=== PATIENT | male | born 1950 | race Caucasian/White ===

== ENCOUNTER 2023-02-08 15:57 | Observation (INO) ==
--- NOTE | 2023-02-08 16:15 | Emergency Department Note ---
Impression & Plan Hypotension, CAD (coronary artery disease), Hypertension, Medication side effect ED Provider Note NAME: ED HAWKINS AGE: 72 SEX: M : 1950 ARRIVES VIA: Ambulance INFORMANT: Patient, ED PROVIDER(S): Dao Candelaria MD CHIEF COMPLAINT: Presyncope MEDICAL DECISION MAKING: Patient presents due to concern for presyncopal symptoms. The patient was hypotensive upon presentation was ordered IV fluids. The patient is mentating normally and does not appear to be an extremis. IV was established blood work was obtained. The patient's blood counts today show normal white count hemoglobin 12.8 which there is no prior for comparison. Kidney function grossly unremarkable but with prerenal azotemia. Patient's troponin is not elevated. Given the patient's hypotension likely secondary to the increase in his blood pr essure medicine as well as a second episode of almost passing out to the patient would benefit from admission. It is with the on-call hospital service Dr. Miller and the patient was admitted to the medicine service Prior /Outside records reviewed: None Differential diagnosis: Vasovagal event, dehydration, infection, hypoglycemia, electrolyte abnormalities, cardiac sources, intracerebral event, pulmonary embolism, seizure, toxicologic, neurologic, as well as other pathologies. Diagnostics, as interpreted by me: ECG:Sinus rhythm, rate of 66 possible wide QRS motion artifact noted likely secondary to patient's DBS. No obvious ST elevations. Cardiac monitoring: An order was placed for continuous cardiac monitoring. The monitor shows a rate of 55 with sinus bradycardia rhythm. Patient was placed on pulse oximetry Medical decision rules: none Imaging studies: See below HPI: Patient presents due to concern for presyncopal symptoms. The patient states that he had presented to an outpatient follow-up visit developed presyncopal symptoms and was noted to be hypotensive and was referred here for further evaluation treatment. Patient states that all of this began about 2 weeks ago when he had a syncopal episode. Patient denies any recent trauma but did have a syncopal event 2 weeks prior. The patient Liat Bowen had mild elevations in his troponins and the bight maker at the time wanted a cardiac catheterization. States that they did not have a cardiac catheterization that went home he followed up with his primary bight maker Dr. Delgadillo who stated that if he had a repeat episode that he should be further evaluated. The patient does believe that he had a prior echocardiogram. Patient denies any current chest pains or shortness of breath no nausea vomiting. Patient states that his appetite has been appropriate. No diarrhea. PAST MEDICAL HISTORY: See Below PAST SURGICAL HISTORY: See Below SOCIAL HISTORY: See Below HOME MEDICATIONS: See Below ALLERGIES: See Below VITALS: See Below PHYSICAL EXAMINATION: GENERAL: NAD, wearing a mask, non-toxic. EYE EXAM: Normal conjunctiva. PERRL, no anisocoria and EOM's grossly intact w/o pain. NECK: Supple, no nuchal rigidity, no adenopathy, non-tender. No signs of meningismus. FROM of the neck with good chin to chest and neck extension. No stridor. LUNGS: Clear to auscultation. Normal chest wall mechanics. HEART: NSR, no MRG. ABDOMEN: Abdomen soft, non-tender, no masses, no rebound or guarding. BACK: No CVA TTP. SKIN: No rashes and no bruising. UPPER EXTREMITIES: Upper extremities are grossly normal. LOWER EXTREMITIES: Grossly normal, no edema. NEURO EXAM: A&O x3, cranial nerves II-XII grossly intact, normal speech, moves all 4 extremities. Past Med/Surg History Medical History AAA (abdominal aortic aneurysm) 4.6 x 3.9 cm 02/08/23 Anxiety CAD (coronary artery disease) Hypertension Hypotension Hypothyroidism Macrocytic anemia Tobacco use Surgical History No pertinent past surgical history Social History Smoking Status: Current every day smoker Tobacco Type: Cigarettes Cigarettes Per Day: 2; Do You Dip or Chew Tobacco: No; Tobacco Cessation Education Requested by Patient: No Hx Alcohol Use: No Hx Substance Use: No Preferred Language: Trinidadian Communication Ability: Effective Adult Manager Required: No Beliefs That Will Affect Care: None Current Living Situation: Spouse Other Information That Helps Us Care for You: No Feels Safe at Home: Yes Safety Concerns: Feels Safe At This Time Assistive Devices: Glasses Allergies Allergies Allergy/AdvReac Type Severity Reaction Status Date / Time No Known Allergies Allergy Verified 02/08/23 18:02 Home Meds Home Medications Medication Instructions Recorded Confirmed aspirin 81 mg tablet,delayed 81 mg PO DAILY 02/08/23 02/08/23 release bupropion HCl 100 mg tablet,12 hr 100 mg PO DAILY 02/08/23 02/08/23 sustained-release cilostazol 50 mg tablet 50 mg PO BID 02/08/23 02/08/23 hydralazine 10 mg tablet 10 mg PO DAILY PRN SBP >150 02/08/23 02/08/23 hydrochlorothiazide 12.5 mg tablet 12.5 mg PO DAILY 02/08/23 02/08/23 levothyroxine 50 mcg tablet 50 mcg PO DAILYBB 02/08/23 02/08/23 lisinopril 20 mg tablet 20 mg PO BID 02/08/23 02/08/23 multivitamin 1 tab PO DAILY 02/08/23 02/08/23 omega-3 fatty acids 1,000 mg 1,000 mg PO DAILY 02/08/23 02/08/23 capsule rosuvastatin 20 mg tablet 20 mg PO DAILY 02/08/23 02/08/23 sulfasalazine 500 mg tablet 1,500 mg PO DAILY 02/08/23 02/08/23 varenicline 0.5 mg tablet 0.5 mg PO DIRECTED 02/08/23 02/08/23 Previous Rx's Medication Instructions Recorded lisinopril 10 mg tablet 10 mg PO BID 30 days #60 tabs 02/09/23 Results & Data (ED) Vital Signs Vital Signs - 24 hr 02/08/23 16:18 02/08/23 16:16 02/08/23 16:30 Temperature 36.7 C Temperature Source Oral Pulse Rate 65 66 Pulse Rate from SpO2 Sensor Respiratory Rate 14 Blood Pressure 93/49 L 107/64 Blood Pressure Mean 63 78 Pulse Oximetry 96 Oxygen Delivery Method Room Air Sepsis Recent Fever Within 48 Hours No Sepsis New/Unexplained Change in Mental Status No Sepsis Action Taken by Nursing No Action Required 02/08/23 16:30 02/08/23 16:22 02/08/23 17:00 Temperature Temperature Source Pulse Rate 58 L 58 L Pulse Rate from SpO2 Sensor 59 L 58 L Respiratory Rate 13 20 Blood Pressure Blood Pressure Mean Pulse Oximetry 96 97 Oxygen Delivery Method Room Air Room Air Room Air Sepsis Recent Fever Within 48 Hours Sepsis New/Unexplained Change in Mental Status Sepsis Action Taken by Nursing 02/08/23 17:01 02/08/23 17:01 02/08/23 17:30 Temperature Temperature Source Pulse Rate 60 Pulse Rate from SpO2 Sensor 59 L Respiratory Rate 17 Blood Pressure 84/42 L 81/48 L Blood Pressure Mean 56 59 Pulse Oximetry 94 Oxygen Delivery Method Room Air Sepsis Recent Fever Within 48 Hours Sepsis New/Unexplained Change in Mental Status Sepsis Action Taken by Nursing 02/08/23 17:30 02/08/23 18:00 02/08/23 18:00 Temperature Temperature Source Pulse Rate 50 L 60 Pulse Rate from SpO2 Sensor 46 L 58 L Respiratory Rate 16 14 Blood Pressure 85/45 L Blood Pressure Mean 58 Pulse Oximetry 96 98 Oxygen Delivery Method Room Air Room Air Sepsis Recent Fever Within 48 Hours Sepsis New/Unexplained Change in Mental Status Sepsis Action Taken by Nursing 02/08/23 18:30 02/08/23 18:46 02/08/23 18:46 Temperature Temperature Source Pulse Rate 51 L 62 Pulse Rate from SpO2 Sensor 53 L 61 Respiratory Rate 21 13 Blood Pressure 113/61 Blood Pressure Mean 78 Pulse Oximetry 99 96 Oxygen Delivery Method Room Air Room Air Sepsis Recent Fever Within 48 Hours Sepsis New/Unexplained Change in Mental Status Sepsis Action Taken by [facility] Medications Current Medication List: was personally reviewed by me Laboratory Data Attestation: I reviewed the patient's lab results. 02/08/23 16:24 02/08/23 16:24 Lab Results 02/08/23 02/08/23 02/08/23 Range/Units 16:24 16:24 16:24 WBC 8.20 (4.8-10.8) K/ul RBC 3.71 L (4.70-6.10) M/uL Hgb 12.8 L (14.0-18.0) g/dl Hct 37.6 L (42.0-52.0) % MCV 101.3 H (80.0-100.0) fL MCH 34.5 H (25.0-34.0) pg MCHC 34.0 (32.0-36.0) g/dL RDW Std Deviation 46.1 (36.4-46.3) fL RDW Coeff of Jac 12.2 (11.5-14.5) % Plt Count 209 (130-400) K/uL MPV 10.2 (9.4-12.4) fL Immature Gran % (Auto) 0.6 % Neut % (Auto) 44.4 % Lymph % (Auto) 41.7 % [place] % (Auto) 10.0 % Eos % (Auto) 2.7 % Baso % (Auto) 0.6 % Neut # (Auto) 3.64 (1.40-6.50) K/uL Lymph # (Auto) 3.42 H (1.2-3.4) K/uL [place] # (Auto) 0.82 H (0.11-0.59) K/uL Eos # (Auto) 0.22 (0-0.50) K/uL Baso # (Auto) 0.05 (0-0.2) K/uL Immature Gran # (Auto) 0.05 (0.01-0.20) K/uL PT 11.4 (9.0-12.0) Seconds INR 1.0 (0.9-1.1) Sodium 141 (136-145) mmol/L Potassium 4.2 (3.5-5.1) mmol/L Chloride 109 H (98-107) mmol/L Carbon Dioxide 26 (21-32) mmol/L Anion Gap 6 (3-11) BUN 24 H (6-23) mg/dl Creatinine 1.00 (0.6-1.4) mg/dl Est Cr Clr Drug Dosing 75.4 ml/min Est GFR ( Amer) 88.0 ml/min Est GFR (Non-Af Amer) 75.9 ml/min BUN/Creatinine Ratio 24.0 H (10-20) Glucose 86 (70-99(Fasting)) mg/dl Calcium 9.5 (8.6-10.3) mg/dl Magnesium 2.1 (1.7-2.4) mg/dl Total Bilirubin 0.5 (0.2-1.0) mg/dl AST 14 (13-39) U/L ALT 16 (7-52) U/L Alkaline Phosphatase 73 (34-104) U/L Troponin I High Sens 7.8 (0-20) pg/ml Total Protein 6.5 (6.0-8.3) gm/dl Albumin 3.7 (3.4-5.0) gm/dl Globulin 2.8 (2.5-4.0) gm/dl Albumin/Globulin Ratio 1.3 (0.9-2) TSH (0.300-4.500) uIu/ml SARS-CoV-2, RNA, NAAT (NEGATIVE) 02/08/23 02/08/23 Range/Units 16:24 18:44 WBC (4.8-10.8) K/ul RBC (4.70-6.10) M/uL Hgb (14.0-18.0) g/dl Hct (42.0-52.0) % MCV (80.0-100.0) fL MCH (25.0-34.0) pg MCHC (32.0-36.0) g/dL RDW Std Deviation (36.4-46.3) fL RDW Coeff of Jac (11.5-14.5) % Plt Count (130-400) K/uL MPV (9.4-12.4) fL Immature Gran % (Auto) % Neut % (Auto) % Lymph % (Auto) % [place] % (Auto) % Eos % (Auto) % Baso % (Auto) % Neut # (Auto) (1.40-6.50) K/uL Lymph # (Auto) (1.2-3.4) K/uL [place] # (Auto) (0.11-0.59) K/uL Eos # (Auto) (0-0.50) K/uL Baso # (Auto) (0-0.2) K/uL Immature Gran # (Auto) (0.01-0.20) K/uL PT (9.0-12.0) Seconds INR (0.9-1.1) Sodium (136-145) mmol/L Potassium (3.5-5.1) mmol/L Chloride (98-107) mmol/L Carbon Dioxide (21-32) mmol/L Anion Gap (3-11) BUN (6-23) mg/dl Creatinine (0.6-1.4) mg/dl Est Cr Clr Drug Dosing ml/min Est GFR ( Amer) ml/min Est GFR (Non-Af Amer) ml/min BUN/Creatinine Ratio (10-20) Glucose (70-99(Fasting)) mg/dl Calcium (8.6-10.3) mg/dl Magnesium (1.7-2.4) mg/dl Total Bilirubin (0.2-1.0) mg/dl AST (13-39) U/L ALT (7-52) U/L Alkaline Phosphatase (34-104) U/L Troponin I High Sens (0-20) pg/ml Total Protein (6.0-8.3) gm/dl Albumin (3.4-5.0) gm/dl Globulin (2.5-4.0) gm/dl Albumin/Globulin Ratio (0.9-2) TSH 3.248 (0.300-4.500) uIu/ml SARS-CoV-2, RNA, NAAT NEGATIVE (NEGATIVE) Administered Medications Aspirin (Aspirin 81 Mg Ectab) 81 mg PO DAILY SHAJI Stop: 03/11/23 08:59 Last Admin: 02/09/23 08:47 Dose: 81 mg Documented By: MAYKEL Bupropion HCl (Bupropion Sr 100 Mg Tabcr) 100 mg PO DAILY SHAJI Stop: 03/11/23 08:59 Last Admin: 02/09/23 08:47 Dose: 100 mg Documented By: MAYKEL Cilostazol (Cilostazol 100 Mg Tab) 50 mg PO BID SHAJI Stop: 03/10/23 21:29 Last Admin: 02/09/23 08:48 Dose: 50 mg Documented By: Admin: 02/08/23 21:48 Dose: 50 mg Documented By: KLARISSA Enoxaparin Sodium (Enoxaparin Inj 40 Mg/0.4 Ml Syr) 40 mg SQ Q24H SHAJI Stop: 03/11/23 08:59 Last Admin: 02/09/23 08:51 Dose: 40 mg Documented By: MAYKEL Levothyroxine Sodium (Levothyroxine Sodium 50 Mcg Tablet) 50 mcg PO DAILYBB SHAJI Stop: 03/11/23 06:29 Last Admin: 02/09/23 05:55 Dose: 50 mcg Documented By: KLARISSA Lisinopril (Lisinopril 10 Mg Tab) 10 mg PO BID SHAJI Stop: 03/10/23 20:59 Last Admin: 02/09/23 08:50 Dose: 10 mg Documented By: Admin: 02/08/23 21:49 Dose: 10 mg Documented By: KLARISSA Rosuvastatin Calcium (Rosuvastatin Calcium 20 Mg Tab) 20 mg PO DAILY SHAJI Stop: 03/11/23 08:59 Last Admin: 02/09/23 08:47 Dose: 20 mg Documented By: MAYKEL Sulfasalazine (Sulfasalazine 500 Mg Tablet) 1,500 mg PO DAILY [facility] Stop: 03/11/23 08:59 Last Admin: 02/09/23 08:49 Dose: 1,500 mg Documented By: MAYKEL Discontinued Medications Sodium Chloride (Nss) 500 mls @ 999 mls/hr IV .Q31M SHAJI Stop: 02/08/23 17:45 Last Infusion: 02/08/23 17:39 Dose: 0 mls/hr Documented By: Admin: 02/08/23 17:08 Dose: 999 mls/hr Documented By: YOVANA Sodium Chloride (Nss 1000ml) 1,000 mls @ 999 mls/hr IV .Q1H1M ONE Stop: 02/08/23 19:08 Last Infusion: 02/08/23 19:18 Dose: 0 mls/hr Documented By: Admin: 02/08/23 18:17 Dose: 999 mls/hr Documented By: YOVANA Discharge Plan Visit Data Chief Complaint: Cardiac Assessment Stated Complaint: DIZZINESS, HYPOTENSION ED Provider: Dao Candelaria Discharge Problem: Hypotension, CAD (coronary artery disease), Hypertension, Medication side effect Patient Disposition: Admitted As Inpatient Discharge Instructions Interventions: ED Discharge Assessment Last Done: 02/08/23 20:23
[2023-02-08] MEDS ORDERED: SODIUM CHLORIDE 0.9% 500 ML IV SCH (17:15)
[2023-02-08 17:16] LABS: Basophils # (auto) 0.05 K/uL (0-0.2); Basophils % (auto) 0.6 %; Eosinophils # (auto) 0.22 K/uL (0-0.50); Eosinophils % (auto) 2.7 %; Hematocrit (blood only) 37.6 % (42.0-52.0); Hemoglobin 12.8 g/dl (14.0-18.0); Immature Granulocytes # (auto) 0.05 K/uL (0.01-0.20); Immature Granulocytes % (auto) 0.6 %; Lymphocytes # (auto) 3.42 K/uL (1.2-3.4); Lymphocytes % (auto) 41.7 %; Mean Corpuscular Hemoglobin 34.5 pg (25.0-34.0); Mean Corpuscular Volume 101.3 fL (80.0-100.0); Mean Platelet Volume 10.2 fL (9.4-12.4); Monocytes # (auto) 0.82 K/uL (0.11-0.59); Neutrophils # (auto) 3.64 K/uL (1.40-6.50); Neutrophils % (auto) 44.4 %; Platelet Count 209 K/uL (130-400); RDW Coefficient of Variation 12.2 % (11.5-14.5); RDW Standard Deviation 46.1 fL (36.4-46.3); Red Blood Count 3.71 M/uL (4.70-6.10)
[2023-02-08 17:29] LABS: Albumin Globulin Ratio 1.3 (0.9-2); Albumin Level 3.7 gm/dl (3.4-5.0); Bilirubin,Total 0.5 mg/dl (0.2-1.0); Calcium 9.5 mg/dl (8.6-10.3); Creatinine Clr Calc Pharmacy 75.4 ml/min; Est GFR (Non-African American) 75.9 ml/min; Globulin 2.8 gm/dl (2.5-4.0); Magnesium 2.1 mg/dl (1.7-2.4); Potassium 4.2 mmol/L (3.5-5.1); Total Protein 6.5 gm/dl (6.0-8.3)
[2023-02-08 17:35] LABS: Troponin I High Sensitivity 7.8 pg/ml (0-20)
[2023-02-08 17:38] LABS: Prothrombin Time 11.4 Seconds (9.0-12.0)
[2023-02-08] MEDS ORDERED: SODIUM CHLORIDE 0.9% 1000ML 1,000 ML IV ONE (18:08)
--- NOTE | 2023-02-08 18:35 | History & Physical Report ---
Date of Service February 08, 2023 Assessment & Plan (1) Hypotension: Plan: Hypotension - Normalized after IVF EKG without ischemic findings High-sensitivity troponin is normal on admission Improved with fluids, patient is normotensive at time of hospitalist assessm ent Patient has had multiple antihypertensive medication adjustments, only took lisinopril in the morning for his blood pressure drops Does endorse orthostatic symptoms in the last 2 weeks, no syncope since he was seen in [facility] 2 weeks ago Records pending. Per patient has a history of OK with 1 stent, no reduced ejection fraction. Does take aspirin. He has not had any chest pain, chest pressure, or shortness of breath in the last 2 weeks Lisinopril dose decreased, hydrochlorothiazide held Troponin 2-hour trended Patient was seen at [facility] with a high sensor troponin that peaked at 101, deferred cath at that time and has a follow-up with Dr. Delgadillo. No acute indication for cath at time of bedside assessment as he is not having chest pain, EKG is normal, and high-sensitivity troponins normal. We will continue to follow overnight Renal function is normal, BUN/creatinine ratio is elevated suggesting volume depletion No leukocytosis, no infectious symptoms, no fever. COVID is pending Hemoglobin is 12.8, no baseline available. Patient denies bleeding. Abdominal aortic aneurysm Records pending, has annual surveillance. Last had this ultrasounded 2 weeks ago at [facility], was not expanding and did not have an indication for surgery at that time. - Reocrds not available, Abd US pending Anxiety/depression Wellbutrin continued CAD, history of PCI x1 No chest pain, chest pressure, acute EKG changes, or troponin elevation Continue aspirin, rosuvastatin, lisinopril (lisinopril dose reduced) Patient is not on a beta-miracle, previously on propranolol but this was stopped for borderline bradycardia Bradycardia Patient is bradycardic in the 50s with chronotropic response to the 60s when moving around in bed. We will follow on telemetry. No indication for pacing at this time. Hypothyroidism Continue Synthroid Diet: HH Dispo: Med Tele CODE: Full (2) CAD (coronary artery disease): (3) Anxiety: History of Present Illness Primary Care Provider: MD Randy Reese is a 72-year-old male with a past medical history of hypertension, hypothyroidism, AAA who had recent medication up titration as outpatient who presented with hypotension. Randy reports that 2 weeks ago he had an episode of syncope. While in the [place] was noted to have very high blood pressure (200/100 in the hospital). Was a little dizzy this morning, was found to be hypotensive in the ER. Previously was on 5mg of lisinopril. Was increased to 20mg BID (40mg TDD) in October. Had clonidine added a few weeks ago, then say Dr. Delgadillo on [facility] and had that stopped, was switched with hydralazine PRN for BP >150. Has not taken this in the last 3 days. Had hctz added a few weeks ago, last took yesterday. Only took lisinopril this morning. Dizziness is worse when standing. Does have muscle cramps occasionally. Has a history of OK with 1 stent, AAA followed with regular exams, may need surgery in 1.5-2 years. Is not sure what size it currently is, ultrasound is in March. Had on US at [facility] 2 weeks ago, no rapid increase or indication for surgery at that time. No shortness of breath Endorses a slow heart rate normally, does not take BB/CCB. Was on propanolol until 2 weeks ago, stopped at [facility] for concerns of low HR. hs-trop in [facility] peaked at 101, cath was deffered. Pt denies chest pain, chest pressure. Hx PAD, L leg > R leg. No ulcers. On admission he has no leukocytosis, hemoglobin is 12.8, renal function is with normal baseline and admitting creatinine is 1.00, sodium/potassium are normal, he has no transaminitis, high-sensitivity troponin is normal, TSH is normal Medications include aspirin Bupropion Telemetry stays all Hydralazine 10 mg daily as needed Hydrochlorothiazide 12.5 mg p.o. daily Synthroid 50 mcg daily Lisinopril 20 mg twice daily Rosuvastatin Chantix Sulfasalazine Multivitamin Medical History: Reviewed Medications: Reviewed Surgical History: Reviewed Family history: Reviewed Allergies: Reviewed Social History: No ETOH, +cigarette use Code Status: Full Code Allergies Allergy/AdvReac Type Severity Reaction Status Date / Time No Known Allergies Allergy Verified 02/08/23 18:02 Home Medications Medication Instructions Recorded Confirmed Type aspirin 81 mg tablet,delayed 81 mg PO DAILY 02/08/23 02/08/23 History release bupropion HCl 100 mg tablet,12 hr 100 mg PO DAILY 02/08/23 02/08/23 History sustained-release cilostazol 50 mg tablet 50 mg PO BID 02/08/23 02/08/23 History hydralazine 10 mg tablet 10 mg PO DAILY PRN SBP >150 02/08/23 02/08/23 History hydrochlorothiazide 12.5 mg tablet 12.5 mg PO DAILY 02/08/23 02/08/23 History levothyroxine 50 mcg tablet 50 mcg PO DAILYBB 02/08/23 02/08/23 History lisinopril 20 mg tablet 20 mg PO BID 02/08/23 02/08/23 History multivitamin 1 tab PO DAILY 02/08/23 02/08/23 History omega-3 fatty acids 1,000 mg 1,000 mg PO DAILY 02/08/23 02/08/23 History capsule rosuvastatin 20 mg tablet 20 mg PO DAILY 02/08/23 02/08/23 History sulfasalazine 500 mg tablet 1,500 mg PO DAILY 02/08/23 02/08/23 History varenicline 0.5 mg tablet 0.5 mg PO DIRECTED 02/08/23 02/08/23 History Past Med/Surg History Medical History AAA (abdominal aortic aneurysm) Anxiety CAD (coronary artery disease) Hypotension Surgical History No pertinent past surgical history Social History Smoking Status: Current every day smoker Tobacco Type: Cigarettes Hx Alcohol Use: No Hx Substance Use: No Preferred Language: Turkmen Feels Safe at Home: Yes Review of Systems Review of Systems: All systems reviewed & are unremarkable except as noted in HPI & below Physical Exam Physical Exam: General: A&Ox3. NAD. Cooperative. HEENT: Atraumatic, normocephalic. Vision/hearing intact Pulm: CTAB A&P. -wheezes, -rales, -rhonchi. Symmetrical chest rise. No increased work of breathing. No respiratory distress. Cardiac: regular, bardycardic with chronotropic response. -mrg. Radial pulses intact and symmetrical. Abdominal: Nontender, nondistended, soft. BS present. No pulsation appreciated. Ext: warm, dry. No edema. Results & Data Results & Data Vital Signs (Past 12 Hours) Vital Signs Temp Pulse Resp BP Pulse Ox O2 Del Method 02/08/23 17:30 50 L 16 96 Room Air 02/08/23 17:30 81/48 L 02/08/23 17:01 84/42 L 02/08/23 17:01 60 17 94 Room Air 02/08/23 17:00 58 L 20 97 Room Air 02/08/23 16:22 Room Air 02/08/23 16:30 58 L 13 96 Room Air 02/08/23 16:30 107/64 02/08/23 16:16 66 02/08/23 16:18 36.7 C 65 14 93/49 L 96 Room Air PG Care Time/CCT Total # of Minutes Spent Total Time Spent with Patient: Total time spent is greater than 50% in coordination of care (as documented) at patient's floor/unit and/or counseling patient: Coding Level of Care Code 62215 INT INP/OBS CARE 2/55MIN Diagnoses Hypotension I95.9 CAD (coronary artery disease) I25.10 Anxiety F41.9
--- NOTE | 2023-02-08 20:25 | Ultrasound Report ---
US abdominal aortic aneurysm CLINICAL HISTORY: AAA hx COMPARISON STUDY: None available at time of interpretation. TECHNIQUE: Sonography of the abdominal aorta was performed. FINDINGS: There is mild aneurysmal dilatation of the proximal abdominal aorta, measuring 3.3 x 2.6 cm . Mid abdominal aorta is ectatic, measuring 2.8 x 2.8 cm. There is a 4.6 x 3.9 cm infrarenal abdomina l aortic aneurysm. This contains mural plaque. Right common iliac artery measures 1.7 cm in caliber. The left common iliac artery measures 1.5 cm in caliber. IMPRESSION: 4.6 x 3.9 cm infrarenal abdominal aortic aneurysm. ACT 112: Negative or not required by law. Electronically signed by: Hector Chun M.D. 02/08/2023 8:23 PM
[2023-02-08] MEDS: cilostazoL 100 MG TAB PO SCH (21:48)
[2023-02-08] MEDS: lisinopril 10 MG TAB PO SCH (21:49)
[2023-02-09] MEDS ORDERED: LEVOTHYROXINE SODIUM 50 MCG TABLET PO SCH (06:30)
--- NOTE | 2023-02-09 07:19 | Hospitalist Progress Note ---
Date of Service February 09, 2023 Assessment & Plan Admission and Anticipated Discharge Date Admission Date: February 08, 2023 Results & Data Results & Data Vital Signs (Past 12 Hours) Vital Signs Temp Pulse Pulse Resp BP Pulse Ox O2 Del Method 02/09/23 02:38 36.4 C L 58 L 18 138/71 96 Room Air 02/08/23 23:26 72 02/08/23 22:26 54 L 02/08/23 21:10 36.4 C L 53 L 18 144/73 H 97 Room Air
[2023-02-09 08:06] LABS: Hematocrit (blood only) 33.7 % (42.0-52.0); Hemoglobin 11.5 g/dl (14.0-18.0); Mean Corpuscular Hemoglobin 34.8 pg (25.0-34.0); Mean Corpuscular Hgb Conc 34.1 g/dL (32.0-36.0); Mean Corpuscular Volume 102.1 fL (80.0-100.0); Mean Platelet Volume 10.2 fL (9.4-12.4); Platelet Count 173 K/uL (130-400); RDW Coefficient of Variation 12.3 % (11.5-14.5); RDW Standard Deviation 46.5 fL (36.4-46.3); White Blood Count 8.67 K/ul (4.8-10.8)
[2023-02-09 08:07] LABS: Appearance Urine Clear (Clear); Bilirubin Urine Negative (Negative); Blood Urine Negative (Negative); Color Urine Yellow; Glucose Urine UA Negative (Negative); Ketones Urine Negative (Negative); Leukocyte Esterase Urine Negative (Negative); Nitrite Urine Negative (Negative); Protein Urine Negative (Negative); Specific Gravity Urine 1.018 (1.000-1.030); Urobilinogen Urine Negative (Negative)
[2023-02-09 08:20] LABS: BUN Creatinine Ratio 23.5 (10-20); Calcium 8.5 mg/dl (8.6-10.3); Creatinine Clr Calc Pharmacy 88.8 ml/min; Est GFR (African American) 102.3 ml/min; Est GFR (Non-African American) 88.3 ml/min; Potassium 4.3 mmol/L (3.5-5.1)
[2023-02-09] MEDS: cilostazoL 100 MG TAB PO SCH (08:48)
[2023-02-09 08:50] LABS: Basophils # (auto) 0.05 K/uL (0-0.2); Basophils % (auto) 0.6 %; Eosinophils % (auto) 3.5 %; Immature Granulocytes # (auto) 0.03 K/uL (0.01-0.20); Immature Granulocytes % (auto) 0.3 %; Lymphocytes # (auto) 4.45 K/uL (1.2-3.4); Lymphocytes % (auto) 51.3 %; Monocytes # (auto) 0.73 K/uL (0.11-0.59); Monocytes % (auto) 8.4 %; Neutrophils # (auto) 3.11 K/uL (1.40-6.50); Neutrophils % (auto) 35.9 %
[2023-02-09] MEDS: lisinopril 10 MG TAB PO SCH (08:50)
[2023-02-09] MEDS ORDERED: ASPIRIN 81 MG ECTAB PO SCH (09:00)
[2023-02-09] MEDS ORDERED: ENOXAPARIN INJ 40 MG/0.4 ML SYR SQ SCH (09:00)
[2023-02-09] MEDS ORDERED: buPROPion SR 100 MG TABCR PO SCH (09:00)
[2023-02-09] MEDS ORDERED: sulfaSALAzine 500 MG TABLET PO SCH (09:00)
[2023-02-09] MEDS ORDERED: ROSUVASTATIN CALCIUM 20 MG TAB PO SCH (09:00)
--- NOTE | 2023-02-09 14:07 | Discharge Summary ---
Date of Service February 09, 2023 Admission HPI Per Admitting Provider Randy Peng is a 72-year-old male with a past medical history of hypertension, hypothyroidism, AAA who had recent medication up titration as outpatient who presented with hypotension. Randy reports that 2 weeks ago he had an episode of syncope. While in the hospital was noted to have very high blood pressure (200/100 in the hospital). Was a little dizzy this morning, was found to be hypotensive in the ER. Previously was on 5mg of lisinopril. Was increased to 20mg BID (40mg TDD) in October. Had clonidine added a few weeks ago, then say Dr. Delgadillo on [facility] and had that stopped, was switched with hydralazine PRN for BP >150. Has not taken this in the last 3 days. Had hctz added a few weeks ago, last took yesterday. Only took lisinopril this morning. Dizziness is worse when standing. Does have muscle cramps occasionally. Has a history of AR with 1 stent, AAA followed with regular exams, may need surgery in 1.5-2 years. Is not sure what size it currently is, ultrasound is in March. Had on US at [facility] 2 weeks ago, no rapid increase or indication for surgery at that time. No shortness of breath Endorses a slow heart rate normally, does not take BB/CCB. Was on propanolol until 2 weeks ago, stopped at [facility] for concerns of low HR. hs-trop in [facility] peaked at 101, cath was deffered. Pt denies chest pain, chest pressure. Hx PAD, L leg > R leg. No ulcers. On admission he has no leukocytosis, hemoglobin is 12.8, renal function is with normal baseline and admitting creatinine is 1.00, sodium/potassium are normal, he has no transaminitis, high-sensitivity troponin is normal, TSH is normal Medications include aspirin Bupropion Telemetry stays all Hydralazine 10 mg daily as needed Hydrochlorothiazide 12.5 mg p.o. daily Synthroid 50 mcg daily Lisinopril 20 mg twice daily Rosuvastatin Chantix Sulfasalazine Multivitamin Medical History: Reviewed Medications: Reviewed Surgical History: Reviewed Family history: Reviewed Allergies: Reviewed Social History: No ETOH, +cigarette use Code Status: Full Code Admission Exam Per Admitting Provider General: A&Ox3. NAD. Cooperative. HEENT: Atraumatic, normocephalic. Vision/hearing intact Pulm: CTAB A&P. -wheezes, -rales, -rhonchi. Symmetrical chest rise. No increased work of breathing. No respiratory distress. Cardiac: regular, bardycardic with chronotropic response. -mrg. Radial pulses intact and symmetrical. Abdominal: Nontender, nondistended, soft. BS present. No pulsation appreciated. Ext: warm, dry. No edema. Principal Diagnosis Hypotension Discharge Exam Constitutional: well-appearing, no acute distress HEENT: NCAT, no conjunctival injection CV: regular rhythm, no murmur appreciated, extremities well-perfused, no LE edema Resp: CTABL, no wheezes/rales/rhonchi appreciated, no increased work of breathing Neuro: alert, oriented, no focal neurologic deficit appreciated Discharge Data Allergies Allergy/AdvReac Type Severity Reaction Status Date / Time No Known Allergies Allergy Verified 02/08/23 18:02 Consultations 02/08/23 18:08 ED Decision to Admit Stat Ordered Studies 02/08/23 19:39 US abdominal aortic aneurysm Routine Hospital Course (1) Hypotension: Hypotension Patients low blood pressure normalized after receiving IV fluids. EKG was wit hout overt ischemic change. hsTroponin was normal on admission. Of note, patients lisinopril had been recently increased by [facility] from 5mg daily to 20mg twice daily which was suspected to be a contributory factor in patients hypotension. By hospital day two, patients symptoms had completely resolved. Abdominal aortic aneurysm Patient notes that he had recently had a surveillance ultrasound done two weeks prior at [facility], and the providers there did not feel that surgery is indicated yet. Recommend patient continue yearly surveillance. CAD, history of PCI (x1) Patient did not have chest pain, chest pressure, acute EKG changes, or elevated hsTroponin. Patients lisinopril dose was lowered as noted above; patients ASA and rosuvastatin were continued. (2) CAD (coronary artery disease): (3) AAA (abdominal aortic aneurysm): (4) Anxiety: Total Time Total Time Spent Total Time Spent (In Minutes): see attending documentation Discharge Plan Discharge Items Patient Disposition: Home - Self-Care Reason For Visit: HYPOTENSION Discharge Diagnosis: Hypotension Activity: Resume your previous activity Non-emergency contact: Primary Care Provider Call non-emergency contact if: you have any medication questions and your symptoms worsen Follow-up/Referrals: Shira Gongora MD [Primary Care Provider] - Diet: Heart Healthy Addtl Attending Provider Instructions: You were admitted to the hospital for hypotension (low blood pressure). You were treated with intravenous fluids, and we adjusted one of your blood pressure medications (noted below). Your symptoms have improved and we feel it is safe for you to return home. A discharge summary will be sent to your primary care physician to ensure continuity of care. Please bring this discharge summary with you to your next office appointment so that your provider can review it at that time. Follow-up appointments: Make a follow-up appointment with your PCP within the next week. It is very important that you follow up with them shortly after discharge from the hospital. Keep all your follow-up appointments as already scheduled. If you cannot make an appointment, notify your provider. Medications: Your medication list has been reviewed and reconciled upon discharge to ensure accuracy and continuity of care. An updated list of all your medications is included with your hospital discharge paperwork. Please review this list closely, and make note of any changes. * We adjusted the dose of your lisinopril (a blood pressure medication). You were previously on 20mg twice daily - we adjusted this to 10mg twice daily. This will be sent to your pharmacy. If you have any issues filling these prescriptions, please call [phone] and ask to leave a message for Dr. Dao Allen. Take your medications as instructed; do not skip a dose of your medicines. Make sure all of your doctors know every medicine you are taking (including [id number]-[id number] medicines, vitamins, and supplements). Call your primary care provider before taking any new medicines (including nfqg-bem-zbtaptx medicines, vitamins, and supplements), because some of these may interact with your current medications, or may make your symptoms worse. Tell your primary care provider if you cannot afford your medications. CONTACT YOUR PRIMARY CARE PROVIDER if you experience any of the following: Dizziness, lightheadedness, fainting Difficulty following your treatment plan, or difficulty taking medications CALL 911 OR GO TO THE EMERGENCY DEPARTMENT if you experience any of the following: Sudden, severe abdominal pain or nausea/vomiting Severe chest pain, or chest pain that radiates (moves) to your jaw or arm Sudden, severe shortness of breath or difficulty breathing Thank you for allowing us to participate in your care. Pending Studies at Discharge: No Stand-Alone Forms: My [facility] Medications and DC Order Prescriptions: New lisinopril 10 mg Tablet 10 mg PO BID 30 Days Qty: 60 0RF Continued multivitamin Tablet 1 tab PO DAILY hydralazine 10 mg tablet 10 mg PO DAILY PRN (Reason: SBP >150) sulfasalazine 500 mg tablet 1,500 mg PO DAILY omega-3 fatty acids 1,000 mg Capsule 1,000 mg PO DAILY cilostazol 50 mg Tablet 50 mg PO BID aspirin 81 mg Tablet,Delayed Release (Dr/Ec) 81 mg PO DAILY bupropion HCl 100 mg tablet sustained-release 12 hr 100 mg PO DAILY levothyroxine 50 mcg tablet 50 mcg PO DAILYBB rosuvastatin 20 mg tablet 20 mg PO DAILY varenicline 0.5 mg tablet 0.5 mg PO DIRECTED hydrochlorothiazide 12.5 mg tablet 12.5 mg PO DAILY Rx Instructions: PER PT'S , "DID NOT HAVE TODAY OR YESTERDAY, BP LOW". Discontinued lisinopril 20 mg tablet 20 mg PO BID Discharge Orders: Discharge Order (Routine); Ordered 02/09/23 Ordered By: Dao Allen Admission Data Admit Date/Time: 02/08/23 19:18 Attending Provider: Heraclio Temple Admit Provider: Henok Miller Primary Care Provider: Shira Gongora Other Providers: Henok Miller Other Interventions: Discharge Summary Assessment (RN) Last Done: 02/09/23 15:21 Supervising Physician Co-Signing Physician Notes I personally examined the patient and verified all jane points of history and exam, discussed case, and agree with decision making with Dr Allen Feeling better and would like to go home. Extensive discussion on blood pressure management and home monitoring. Vitals noted, in general he is awake and alert pleasant no distress. HEENT normocephalic atraumatic mucous membranes moist. Breathing unlabored no accessory muscle use good effort. Skin shows no rashes no pallor or icterus. Neuro without focal deficits. Hypotensionnow improved. Home on reduced antihypertensive medicines. Suspect he was just unfortunately unable to tolerate diuretic. Twice daily blood pressure monitoring, PCP and cardiology follow-up. AAAongoing outpatient surveillance, blood pressure control. Vigilance for now. Resident Activity Tracking Resident Involvement: Resident Care Provided Care Provided: Adult Hospital Medicine
--- NOTE | 2023-02-09 18:11 | Billing Data ---
Date of Service February 09, 2023 Coding Level of Care Code 52229 IN/OBS DISCH 30 MIN/LESS
--- NOTE | 2023-02-11 08:26 | Electrocardiogram Report ---
Test Reason : Blood Pressure : / mmHG Vent. Rate : 066 BPM Atrial Rate : 066 BPM P-R Int : 000 ms QRS Dur : 100 ms QT Int : 446 ms P-R-T Axes : 000 -28 041 degrees QTc Int : 467 ms Poor data quality, interpretation may be adversely affected Sinus rhythm with a competing junctional pacemaker Abnormal ECG No previous ECGs available Confirmed by Ralf Dalton ([id number]) on 02/11/2023 8:26:40 AM Referred By: Shira Gongora Confirmed By:Ralf Dalton
== END 2023-02-09 15:55 | disposition home or self-care (01) ==
LOC: 2N 15:57 → ED 15:57 → SUATTDRO 19:18 → 2N 20:23